=== PATIENT | male | born 1945 | race Caucasian/White ===

== ENCOUNTER → 2021-08-30 | Outpatient (CLI) | payer MEDICARE ==
[~2021-08-30] MED LIST: ASPIRIN CHEWABL81 MG PO; CLOZAPINE25 MG PO; COZAAR100 MG PO; CYMBALTA 30 MG30 MG PO; LEVEMIR100 UNIT/1 SQ; LIPITOR40 MG PO; NEURONTIN800 MG PO; NOVOLOG FL100 UNIT/1 INJ; OMEPRAZOLE20 MG PO; TOPROL XL25 MG PO
== END ==
LOC: OR 07:45 → CT 08:00
DX: E11.21 Type 2 diabetes mellitus with diabetic nephropathy (principal); I12.9 Hypertensive chronic kidney disease with stage 1 through stage 4 chronic kidney disease, or unspecified chronic kidney disease; N18.9 Chronic kidney disease, unspecified; N28.89 Other specified disorders of kidney and ureter; Z20.822 Contact with and (suspected) exposure to COVID-19
CPT/HCPCS: 82962; 88305; 88313; 88346; 88348